=== PATIENT | female | born 1945 | race Caucasian/White ===

== ENCOUNTER 2025-07-28 15:03 | Outpatient (CLI) | payer MEDICARE | END 2025-07-28 15:04 | disposition home or self-care (01) | LOC: BICMAMMO 15:03 | PROVIDERS: ATTEND Family Medicine | DX: M81.0 Age-related osteoporosis without current pathological fracture (principal); M85.89 Other specified disorders of bone density and structure, multiple sites | CPT/HCPCS: 77080 ==